=== PATIENT | male | born 2000 | race Caucasian/White ===

== ENCOUNTER 2020-04-27 13:38 | Emergency (ER) | payer MEDICAID ==
[~2020-04-27] VITALS: Ht 162.6 cm; Wt 60.8 kg
[2020-04-27 13:48] VITALS: BP 130/82; Ht 162.6 cm; Wt 60.8 kg
[2020-04-27 18:04] LABS: BASOPHIL % 0.9 % (0.2-1.5); PLATELET COUNT 276 x10^3mcL (152-348); RED CELL DISTRIBUTION WIDTH 14.4 % (12.1-16.2)
[2020-04-27 18:22] LABS: CALCIUM 9.2 mg/dL (8.5-10.1); CARBON DIOXIDE 31.8 mmol/L (21-32); CHLORIDE SERUM 102 mmol/L (98-107); CREATININE SERUM 0.9 mg/dL (0.7-1.3); GFR1 > 60 mL/min; GLUCOSE SERUM 103 mg/dL (74-106); POTASSIUM SERUM 4.1 mmol/L (3.5-5.1); SODIUM SERUM 140 mmol/L (136-145)
[2020-04-27 18:26] LABS: ALBUMIN 4.4 g/dL (3.4-5.0); ALKALINE PHOSPHATASE 76 U/L (46-116); ALT/SGPT 25 U/L (16-63); AST/SGOT 13 U/L (15-37); BILIRUBIN TOTAL 0.39 mg/dL (0.20-1.00)
[2020-04-27 18:27] LABS: TOTAL PROTEIN, SERUM 8.4 g/dL (6.4-8.2)
== END 2020-04-27 19:01 | disposition home or self-care (01) ==
LOC: ED 13:38
PROVIDERS: Emergency Medicine
DX: R00.2 Palpitations (principal)